=== PATIENT | female | born 1930 | race Caucasian/White ===

== ENCOUNTER 2016-11-19 10:06 | Emergency (ER) | payer MEDICARE, OTHER ==
[~2016-11-19] VITALS: Ht 170.2 cm; Wt 113.1 kg
[~2016-11-19 10:06] MED LIST: ASPI81 PO; CARV12.5 PO; CHOL1CAP6 PO; FEXO180 PO; FISH1000 PO; FURO20TA PO; IMDU30TA PO; LANTUS2P SC; POTASSIUM PO; PRAV40TA PO; TAB-TAB PO
[2016-11-19 10:11] VITALS: BP 189/79; PULSE 63; RESP 20; TEMP 97.8; O2SAT 98
--- NOTE | 2016-11-19 10:27 | PD ---
HPI Chief Complaint: Fall Time Seen by Provider: 10:22 Travel History International Travel<30 days: No Contact w/Intl Traveler<30days: No Traveled to known affect area: No History of Present Illness HPI Patient presents after a fall. States she got up from the table and started walking to her bedroom when her feet felt numb and she fell forward. Denies any loss of consciousness. She does wear glasses. Denies any neck pain. Reports left shoulder pain. Denies headache. Unable to recall last tetanus. PFSH Past Medical History Asthma: No Blood Disorders: No Heart Rhythm Problems: No Cancer: No Cardiovascular Problems: Yes (CHF) High Cholesterol: Yes Chemotherapy: No Chest Pain: No Congestive Heart Failure: No COPD: No Diabetes: Yes Diminished Hearing: No Endocrine: No Glaucoma: No Genitourinary: No Hepatitis: No Hiatal Hernia: No Hypertension: Yes Immune Disorder: No Musculoskeletal: No Neurologic: No Psychiatric: No Reproductive: No Respiratory: Yes Immunizations Current: Yes (FLU SHOT-2007; PNEUMONIA SHOT-2005) Myocardial Infarction: No Radiation Therapy: No Sleep Apnea: No Thyroid Disease: No ?: Not Past Surgical History Abdominal Surgery: No AICD: No Arteriovenous Shunt: No Cardiac Surgery: No Ear Surgery: No Endocrine Surgery: No Eye Surgery: Yes (RIGHT CATARACT SX ) Genitourinary Surgery: No Gynecologic Surgery: Yes ([facility] 1972) Hysterectomy: Yes (1971) Insulin Pump: No Joint Replacement: No Oral Surgery: No Pacemaker: No Thoracic Surgery: No Other Surgery: Yes (BREAST BX X 2) Social History Alcohol Use: No Tobacco Use: No Substance Use: No Allergies-Medications (Allergen,Severity, Reaction): Coded Allergies: codeine (Unverified Allergy, Severe, 11/19/16) DIZZY; NAUSEA AND VOMITING ; INTERMEDIATE REACTION Reported Meds & Prescriptions Reported Meds & Active Scripts Active Reported Fish Oil + D3 (Fish Oil-Cholecalciferol) 1,200-1,000 Mg-Unit Cap 1 Cap PO DAILY Vitamin D3 (Cholecalciferol) 1,000 Unit Cap 1,000 Units PO DAILY Lantus Solostar Pen Inj (Insulin Glargine) 300 Unit/3 Ml Pen 38 Units SQ HS Furosemide 20 Mg Tab 20 Mg PO DAILY Isosorbide Mononitrate ER (Isosorbide Mononitrate) 30 Mg Esau 30 Mg PO DAILY Pravastatin 40 Mg Tab 40 Mg PO DAILY Carvedilol 6.25 Mg Tab 6.25 Mg PO BID Aspirin 325 Mg Tab 325 Mg PO DAILY Review of Systems General / Constitutional: No: Fever Eyes: No: Visual changes HENT: No: Headaches Cardiovascular: No: Chest Pain or Discomfort Respiratory: No: Shortness of Breath Gastrointestinal: No: Abdominal Pain Genitourinary: No: Dysuria Musculoskeletal: No: Pain Skin: No Rash Neurologic: No: Weakness Psychiatric: No: Depression Endocrine: No: Polydipsia Hematologic/Lymphatic: No: Easy Bruising Physical Exam Narrative GENERAL: Well-nourished, well-developed patient. SKIN: Focused skin assessment warm/dry. HEAD: Normocephalic. EYES: No scleral icterus. No injection or drainage. NECK: Supple, trachea midline. No JVD or lymphadenopathy. CARDIOVASCULAR: Regular rate and rhythm without murmurs, gallops, or rubs. RESPIRATORY: Breath sounds equal bilaterally. No accessory muscle use. GASTROINTESTINAL: Abdomen soft, non-tender, nondistended. MUSCULOSKELETAL: No cyanosis, or edema. BACK: Nontender without obvious deformity. No CVA tenderness. Examination left shoulder reveals discomfort on range of motion without any bony deformities There is a small hematoma above the left eye with minimal laceration that is well approximated Data Data Last Documented VS Vital Signs Date Time Temp Pulse Resp B/P (MAP) Pulse Ox O2 Delivery O2 Flow Rate FiO2 11/19/16 10:11 97.8 63 20 189/79 (115) 98 Orders Orders Shoulder, Limited(2vws) (11/19/16 ) [id number] (Booster) Inj (Boostrix (11/19/16 10:30) Splint Or Brace Apply/Monitor (11/19/16 11:01) MDM Medical Decision Making Medical Screen Exam Complete: Yes Emergency Medical Condition: Yes Differential Diagnosis Left shoulder strain, left shoulder contusion, left shoulder dislocation, forehead laceration, forehead hematoma Narrative Course Assessment and plan discussed with patient and friend at bedside. Left shoulder films reveal a Humeral head fracture. Diagnosis Primary Impression: Fracture of humeral head, left, closed Qualified Codes: S42.292A - Other displaced fracture of upper end of left humerus, initial encounter for closed fracture Additional Impression: Traumatic hematoma of forehead Qualified Codes: S00.83XA - Contusion of other part of head, initial encounter Patient Instructions: General Instructions Additional Instructions: Motrin or Tylenol for pain, sling for comfort, orthopedic follow-up, ice to shoulder and forehead, follow-up with PCP, return to emergency room with any onset of new symptoms. Encouraged cane use. Med/Other Pt SpecificInfo: No Meds Exist/No RX given Disposition: 01 DISCHARGE HOME Condition: Good Carmine Monahan MD Nov 19, 2016 10:27
[2016-11-19] MEDS ORDERED: FISHCAP4 PO (10:28)
[2016-11-19] MEDS ORDERED: PRAV40TA2 PO (10:28)
[2016-11-19] MEDS ORDERED: LANTINJ SQ (10:28)
[2016-11-19] MEDS ORDERED: ASPI325T PO (10:28)
[2016-11-19] MEDS ORDERED: FURO20TA PO (10:28)
[2016-11-19] MEDS ORDERED: ISOS30TA3 PO (10:28)
[2016-11-19] MEDS ORDERED: CARV6.252 PO (10:28)
[2016-11-19] MEDS ORDERED: VITA100036 PO (10:28)
[2016-11-19] MEDS ORDERED: DIPHTH/TETANUS/ACEL PERTUSSIS (BOOSTER) 0.5 ML VIAL/PFS IM ONE (10:30)
--- NOTE | 2016-11-19 10:45 | RADRPT ---
EXAM DATE/TIME: 11/19/2016 10:30 [facility] COMPARISON: No previous studies available for comparison. INDICATIONS : Fell, left shoulder pain with limited ROM MEDICAL HISTORY : Diabetes mellitus type II. SURGICAL HISTORY : None. ENCOUNTER: Initial ACUITY: 1 day PAIN SCORE: 9/10 LOCATION: Left shoulder FINDINGS: The examination demonstrates a comminuted fracture involving the humeral head and humeral neck. The remainder the osseous structures are intact. A limited portion of lung apex visualized is clear. CONCLUSION: 1. Comminuted, impacted fracture involving the left humeral head and neck. Wilman Strauss MD on November 19, 2016 at 10:43 Board Certified Radiologist. This report was verified electronically.
[2016-11-27] MEDS ORDERED: MULT-65 PO (09:03)
[2016-11-27] MEDS ORDERED: POTA10CA PO (09:03)
== END 2016-11-19 11:23 | disposition home or self-care (01) ==
LOC: PHED 10:06
DX: S42.292A Other displaced fracture of upper end of left humerus, initial encounter for closed fracture (principal); S00.83XA Contusion of other part of head, initial encounter; R20.0 Anesthesia of skin; E11.9 Type 2 diabetes mellitus without complications; I10 Essential (primary) hypertension; E78.00 Pure hypercholesterolemia, unspecified; W18.39XA Other fall on same level, initial encounter; Y92.009 Unspecified place in unspecified non-institutional (private) residence as the place of occurrence of the external cause; Z23 Encounter for immunization; Z79.4 Long term (current) use of insulin; Z86.79 Personal history of other diseases of the circulatory system; Z87.09 Personal history of other diseases of the respiratory system
CPT/HCPCS: 73030; 90471; 90715

== ENCOUNTER → 2016-11-27 | Outpatient (CLI) | payer MEDICARE, OTHER ==
[~2016-11-27] MED LIST changes: +ASPI325T PO; -ASPI81 PO; -CARV12.5 PO; +CARV6.252 PO; -CHOL1CAP6 PO; -FEXO180 PO; -FISH1000 PO; +FISHCAP4 PO; -IMDU30TA PO; +ISOS30TA3 PO; +LANTINJ SQ; -LANTUS2P SC; +MULT-65 PO; +OXYC1TAB63 PO; +POTA10CA PO; -POTASSIUM PO; -PRAV40TA PO; +PRAV40TA2 PO; -TAB-TAB PO; +VITA100036 PO
[2016-11-27 11:03] LABS: APTT (PATIENT) 24.6 SEC (24.3-30.1); PROTHROMBIN TIME - PATIENT 11.1 SEC (9.8-11.6)
[2016-11-27 11:20] LABS: BLOOD, URINE NEG (NEG); COMMENT (UR) CATH-CULT NOT IND; CULTURE IF INDICATED CATH CULTURE NOT IND; GLUCOSE,URINE NEG (NEG); HYALINE CAST, URINE 4 /lpf (RARE); KETONE, URINE NEG (NEG); MUCUS URINE FEW /lpf (OCC); NITRITE,URINE NEG (NEG); PH, URINE 5.5 (5.0-8.5); SQUAMOUS EPITHELIAL CELL URINE <1 /hpf (0-5); URINE COLOR YELLOW (YELLW/STRAW)
--- NOTE | 2016-11-29 07:38 | EKG ---
Date Performed: 11/27/2016 Time Performed: 08:42:15 PTAGE: 86 years EKG: Sinus rhythm WITH FIRST DEGREE AV BLOCK MARKED LEFT AXIS DEVIATION RIGHT BUNDLE BRANCH BLOCK Compared to prior tr acing no significant change ABNORMAL ECG PREVIOUS TRACING : 09/28/2014 10.52 DOCTOR: Neno Gan Interpretating Date/Time 11/29/2016 07:38:17
== END ==
LOC: CPRE 08:01
PROVIDERS: ATTEND Orthopaedic Surgery
DX: Z01.810 Encounter for preprocedural cardiovascular examination (principal); Z01.812 Encounter for preprocedural laboratory examination; S42.232A 3-part fracture of surgical neck of left humerus, initial encounter for closed fracture; S42.252A Displaced fracture of greater tuberosity of left humerus, initial encounter for closed fracture; I10 Essential (primary) hypertension; M79.609 Pain in unspecified limb; R94.31 Abnormal electrocardiogram [ECG] [EKG]; X58.XXXA Exposure to other specified factors, initial encounter
CPT/HCPCS: 36415; 81001; 85610; 85730; 86850; 86900; 86901; 93005

== ENCOUNTER 2016-11-28 07:22 | Observation (INO) | payer MEDICARE, OTHER ==
[~2016-11-28] VITALS: Ht 167.6 cm; Wt 112.4 kg
[~2016-11-28 07:22] MED LIST changes: -OXYC1TAB63 PO
[2016-11-28] MEDS ORDERED: CHLORHEXIDINE GLUCONATE 4% SOLN 120 ML BTL TOPICAL SCH (08:00)
[2016-11-28] MEDS ORDERED: ceFAZolin 2 GM PREMIX 50 ML IV SCH (08:00)
[2016-11-28] MEDS ORDERED: METOPROLOL TARTRATE 25 MG TAB PO PRN (08:00)
[2016-11-28] MEDS ORDERED: SODIUM CHLORIDE 0.9% IV SCH ×3 (08:00→14:00)
[2016-11-28] MEDS ORDERED: LACTATED RINGER'S 1000 ML IV PRN (08:00)
[2016-11-28] MEDS ORDERED: EXPAREL PERI-ARTICULAR INJECTION (TOTAL VOL. 60 ML) P-ARTICULR SCH ×2 (08:00)
[2016-11-28] MEDS ORDERED: CHLORHEXIDINE GLUCONATE 2 % 1 PACK (2 CLOTHS) TOPICAL PRN (08:00)
[2016-11-28] MEDS ORDERED: SODIUM CHLORID 0.9% 500 ML IV PRN (08:00)
[2016-11-28] MEDS ORDERED: TRANEXAMIC ACID IV SCH ×3 (08:00→14:00)
[2016-11-28] MEDS ORDERED: POVIDONE IODINE 5% (ANTISEPSIS KIT) 4 APPLICATIONS EACH NARE PRN (08:00)
[2016-11-28] MEDS ORDERED: INSULIN HUMAN REGULAR 1,000 UNITS/10 ML VIAL SQ PRN (08:00)
[2016-11-28] MEDS ORDERED: GENTAMICIN SULFATE 80 MG/2 ML VIAL ONE (09:50)
[2016-11-28] MEDS ORDERED: ACETAMINOPHEN 1000 MG/100 ML 100 ML IV ONE (10:21)
[2016-11-28] MEDS ORDERED: FAMOTIDINE 20 MG/2 ML VIAL ONE (10:21)
[2016-11-28] MEDS ORDERED: ONDANSETRON HCL 4 MG/2 ML VIAL IVP PRN (11:00)
[2016-11-28] MEDS ORDERED: ZOLPIDEM TARTRATE 5 MG TAB PO PRN (11:00)
[2016-11-28] MEDS ORDERED: Post-op Orders (for Pharmacy) MISC XX ONE (11:00)
[2016-11-28] MEDS ORDERED: SODIUM CHLORIDE 0.9% FLUSH 5 ML FLUSH IVF PRN (11:00)
[2016-11-28] MEDS ORDERED: MORPHINE SULFATE 4 MG/ML INJ IV PUSH PRN (11:00)
[2016-11-28] MEDS ORDERED: MAGNESIUM HYDROXIDE SUSP 30 ML CUP PO PRN (11:00)
[2016-11-28] MEDS ORDERED: ePHEDrine/NS 25 MG/5 ML SYR IV ONE (12:00)
[2016-11-28] MEDS ORDERED: MIDAZOLAM HCL 2 MG/2 ML VIAL IV ONE (12:00)
[2016-11-28] MEDS ORDERED: ONDANSETRON HCL 4 MG/2 ML VIAL IV PUSH ONE (12:00)
[2016-11-28] MEDS ORDERED: ROCURONIUM INJ 50 MG/5 ML SYRINGE IV PUSH ONE (12:00)
[2016-11-28] MEDS ORDERED: GLYCOPYRROLATE 1 MG/5 ML SYRINGE IV PUSH ONE (12:00)
[2016-11-28] MEDS ORDERED: PROPOFOL 200 MG/20 ML AMP IV ONE (12:00)
[2016-11-28] MEDS ORDERED: NEOSTIGMINE 3 MG/3 ML SYR IV ONE (12:00)
[2016-11-28] MEDS ORDERED: LIDOCAINE HCL 1% PF 5 ML AMPULE OTHER ONE (12:00)
--- NOTE | 2016-11-28 13:08 | HHI.FF ---
Face to Face Verification Diagnosis: (1) Fracture of humerus, proximal, left, closed (2) Status post total replacement of left shoulder Occupational Therapy Left UE Range of Motion: Pendular Additional Instructions Do not externally rotate left shoulder beyond 0 degrees or do internal rotation against resistance until 6 weeks postop. Nursing Dressing Changes: Daily dressing change, Coverderm/Primapore Additional Instructions Remove steristrips on postop day 14. I have seen patient Yoly Harrington on 11/28/16. My clinical findings support the need for the requested home health care services because: Ltd mobility - disease progression Limited ability to care for self High risk of falls I certify that my clinical findings support that this patient is homebound because: Post-op weakness Unsteady gait/balance Unsafe to leave home unassisted Vanna Wyatt MD (Charles) Nov 28, 2016 13:08
[2016-11-28] MEDS ORDERED: DO NOT ADM ANY ANTICOAGULANT DRUGS PRN (13:12)
--- NOTE | 2016-11-28 13:16 | HHI.PR ---
Immediate Post Op Note Procedure Date: Nov 28, 2016 Pre Op Diagnosis: (1) Fracture of humerus, proximal, left, closed Post Op Diagnosis: (1) Fracture of humerus, proximal, left, closed Head splitting fracture. Surgeon: Jayden Wyatt MD Iuss Acoustic Analyst(s): ASHLEY Mabry Procedure: Hemiarthroplasty, left shoulder with Raimundo Reunion prosthesis. Complications: none Specimen(s) removed: none Estimated blood loss: 75 ml Anesthesia: General, Regional Block (interscalene), Local (Exparel) Drains: None IVF Patient to: PACU Patient Condition: Good Vanna Wyatt MD (Charles) Nov 28, 2016 13:16
--- NOTE | 2016-11-28 13:16 | HHI.PR ---
Immediate Post Op Note Procedure Date: Nov 28, 2016 Pre Op Diagnosis: (1) Fracture of humerus, proximal, left, closed Post Op Diagnosis: (1) Fracture of humerus, proximal, left, closed Head splitting fracture. Surgeon: Jayden Wyatt MD Imager(s): ASHLEY Mabry Procedure: Hemiarthroplasty, left shoulder with Raimundo Reunion prosthesis. Complications: none Specimen(s) removed: none Estimated blood loss: 75 ml Anesthesia: General, Regional Block (interscalene), Local (Exparel) Drains: None IVF Patient to: PACU Patient Condition: Good Vanna Wyatt MD (Charles) Nov 28, 2016 13:16
--- NOTE | 2016-11-28 13:16 | HHI.PR ---
Immediate Post Op Note Procedure Date: Nov 28, 2016 Pre Op Diagnosis: (1) Fracture of humerus, proximal, left, closed Post Op Diagnosis: (1) Fracture of humerus, proximal, left, closed Head splitting fracture. Surgeon: Jayden Wyatt MD Electric Blasting Cap Assembler(s): ASHLEY Mabry Procedure: Hemiarthroplasty, left shoulder with Raimundo Reunion prosthesis. Complications: none Specimen(s) removed: none Estimated blood loss: 75 ml Anesthesia: General, Regional Block (interscalene), Local (Exparel) Drains: None IVF Patient to: PACU Patient Condition: Good Vanna Wyatt MD (Charles) Nov 28, 2016 13:16
[2016-11-28] MEDS: LACTATED RINGER'S 1000 ML INJ 1,000 ML IV SCH (13:30)
--- NOTE | 2016-11-28 15:00 | RADRPT ---
EXAM DATE/TIME: 11/28/2016 13:49 [facility] COMPARISON: SHOULDER LEFT LTD (2VWS), November 19, 2016, 10:30. INDICATIONS : Post op left total shoulder. MEDICAL HISTORY : Diabetes mellitus type II. SURGICAL HISTORY : None. ENCOUNTER: Initial ACUITY: 1 day PAIN SCORE: 6/10 LOCATION: Left Shoulder FINDINGS: Patient is status post placement of a left shoulder prosthesis. There is good position and alignment of the prosthesis and bony structures. The bony structures are grossly intact. Postsurgical changes a re present. CONCLUSION: Good position and alignment on this postoperative examination. Sarabjit Valle MD on November 28, 2016 at 14:58 Board Certified Radiologist. This report was verified electronically.
--- NOTE | 2016-11-28 15:02 | MP ---
cc: Vanessa SHERMAN. DATE OF SURGERY: 11/28/2016 PREOPERATIVE DIAGNOSIS Head-splitting proximal humerus fracture, left shoulder. POSTOPERATIVE DIAGNOSIS Head-splitting proximal humerus fracture, left shoulder. OPERATION PERFORMED Left shoulder hemiarthroplasty with [place] ReUnion prosthesis. SURGEON Vanna Sherman MD ANESTHESIA General endotracheal with supplemental interscalene block and local. INDICATIONS AND FINDINGS This 86-year-old woman fell at home when getting up from a chair and injured her shoulder. She was seen at the emergency department where x-rays were taken. This showed a fracture of the proximal humerus that appeared to be displaced and intraarticular. A CT scan was obtained which showed a fracture of the proximal humerus well-healed had head-split component to it. Physical findings showed ecchymosis and tenderness in the shoulder. Her x-rays are as noted above. Operative findings were consistent with radiographic findings with there being a head-splitting proximal humerus fracture. The actual portions of the shaft did not appear to be significantly damaged. The head fragment was such that it could not be stabilized with internal fixation. IMPLANTS USED Raimundo ReUnion stem size 10 with a size 44 x 16 mm symmetrical head. PROCEDURE The patient was brought to the operating room and general endotracheal anesthetic as well as an interscalene block anesthetic were carried out by Dr. Gutierrez. The patient was then placed into a beach-chair position with a bolster under the left shoulder. She was then prepped with alcohol, Hibiclens and ChloraPrep and draped in the usual manner with the shoulder draped free. She received prophylactic antibiotics in the form of Ancef. She also received tranexamic acid. The left shoulder After an appropriate timeout procedure, local anesthesia was administered in the incision site. An anterior incision was then made going from the interval between the acromioclavicular joint and the coracoid down to the anterior aspect of the axillary fold. This incision was deepened through subcutaneous tissues down to the deltopectoral groove which was exposed and identified. This was then opened bluntly protecting the cephalic vein. Retractors were placed. Dissection was carried out down to the shoulder joint itself. The rotator cuff was intact. Palpating through this it was evident that there was a split in the humeral head. The rotator interval was identified and split. The fracture was then identified. There was significant joint incongruity. The subscapularis was then carefully detached from the lesser tuberosity which appeared to be intact. The retractors were placed about the humeral neck and head. After placement of a cutting guide the proximal humeral cut was made with the oscillating saw. The head fragments were removed. The area of the greater tuberosity and lesser tuberosity were carefully inspected. There did not appear to be any instability of the fracture. Proximal humeral preparation was initiated using hand awls followed by broaching. The hand awls went to size 10 mm and the broaching started at size 8 and went to 10. A size 11 would not go. The trial prosthesis with the head was then positioned in place and appeared satisfactory. There was excellent motion and excellent stability. The humeral trial was removed. The stem was partially of inserted and bone graft from the humeral head was impacted into the edges proximally. The humeral head fragment was then impacted tightly. The head prosthesis was then impacted onto the stem after it was cleaned and dried. This was very stable at this point. The shoulder was then irrigated well. Local anesthesia was administered throughout the shoulder with Exparel. Wound closure then commenced using #1 FiberWire interrupted Sd Elvis sutures to reattach the subscapularis and close the interval between the subscapularis and the supraspinatus. The deltopectoral groove was closed with interrupted 0 Vicryl [id number] sutures. The subcutaneous tissue was closed with 2-0 Vicryl interrupted simple sutures with buried knots. The skin was closed with continuous subcuticular closure of 4-0 Monocryl. The wound was dressed with Steri-Strips followed by dry dressing, ABD and Medipore compression dressing. The arm was placed back into a sling and swathe. The patient was transferred to the recovery room in satisfactory condition having tolerated the procedure well. Counts were correct. Specimens none. Estimated blood loss 75 mL. MD VICTOR M Das/DARWIN /1:19 PM /2:44 PM
--- NOTE | 2016-11-28 15:32 | PD.PN.STU ---
Subjective Remarks CC: Lt shoulder proximal humerus fracture HPI: Pt is a 86yo female with a h/o of DM, HTN, hypercholesterolemia, and urinary retention who underwent same day surgery for a head-splitting left proximal humerus fracture with Dr. Swanson. Pt reports experiencing a fall last Sunday (11/19) in the presence of her daughter while attempting to get up from a chair at her home, the daughter was no table to witness the fall as she had her back to her. Pt cannot recall if she was dizzy, tripped on something, or if she lost consciousness before the fall, but does not believe she lost consciousness. Pt denies h/o of strokes in the past. They went to the ER where X -ray imaging showed fracture of the proximal humerus that appeared to be displaced and intraarticular. A CT scan showed a head-splitting left proximal humerus fracture. The following Wed the pt saw Dr. Swanson in his office and planned for the surgery for today. Pt currently reports throat dryness and adequate pain control. Overall feeling good and comfortable. Denies HERR, changes in vision, SOB, abdominal pain, leg pain, leg swelling. Pt does not have a albarado catheter and has not asked to urinate at this time. PACU nurse reports good anesthesia recovery and denies aspiration during intubation. PMH: diabetes mellitus, hypertension, hypercholesterolemia, upper and lower dentures, urinary retention PSH: breast biopsyx2, bilateral cataract removal, hysterectomy (1971) FH: mother from multiple strokes at 86yo. no medical history on father who at 77yo. 6 brothers and sisters who are all , but pt reported no significant medical history. SH: denies tobacco and alcohol use Allergies: codeine- nausea and vomiting Objective Vitals Vital Signs Date Time Temp Pulse Resp B/P (MAP) Pulse Ox O2 Delivery O2 Flow Rate FiO2 11/28/16 14:30 52 15 118/58 (78) 93 Room Air 11/28/16 14:15 57 15 121/57 (78) 93 Room Air 11/28/16 14:00 58 18 127/59 (81) 94 Room Air 11/28/16 13:45 60 19 127/58 (81) 94 Room Air 11/28/16 13:30 65 14 126/60 (82) 94 Room Air 11/28/16 13:15 97.4 69 13 129/62 (84) 97 Room Air 11/28/16 08:04 97.9 57 18 142/57 (85) 96 I/O 11/27/16 11/27/16 11/27/16 11/28/16 11/28/16 11/28/16 07:00 15:00 23:00 07:00 15:00 23:00 Intake Total 600 ml Output Total 50 ml Balance 550 ml Intake IV Total 600 ml Output Estimated Blood Loss 50 ml Other Results 11/28/16 11/28/16 11/29/16 15:00 23:00 07:00 Intake Total 600 ml Output Total 50 ml Balance 550 ml Intake IV Total 600 ml Output Estimated Blood Loss 50 ml Imaging Last Impressions Shoulder X-Ray 11/28/16 0000 Signed Impressions: Service Date/Time: Monday, November 28, 2016 13:49 - CONCLUSION: Good position and alignment on this postoperative examination. Sarabjit Valle MD Objective Remarks GENERAL: very pleasant, slightly groggy, WDWN obese female who was in NAD SKIN: Warm and dry. HEAD: Atraumatic. Normocephalic. EYES: Pupils equal and round. EOMI. No scleral icterus. No injection or drainage. ENT: No nasal bleeding or discharge. Dry mucous membranes, oropharynx nonerythematous. NECK: Trachea midline. No JVD. CARDIOVASCULAR: Regular rate and rhythm. S1 and S2 heard, no murmurs, gallops, rubs. RESPIRATORY: No accessory muscle use. Clear to auscultation. Breath sounds equal bilaterally. GASTROINTESTINAL: Bowel sounds heard in all 4 quadrants. Abdomen soft, non- tender, nondistended. Hepatic and splenic margins not palpable. MUSCULOSKELETAL: Left shoulder and arm has bandage in place and in a sling. All other extremities without clubbing, cyanosis, or edema. No obvious deformities. NEUROLOGICAL: Awake, alert., and orientedx4 to self, time, place, and situation. No obvious cranial nerve deficits. Motor grossly within normal limits. Five out of 5 muscle strength in the arms and legs. Normal speech. PSYCHIATRIC: Appropriate mood and affect; insight and judgment normal. Procedures Hemiarthroplasty, left shoulder with [place] Reunion prosthesis with Dr. Swanson Medications and IVs Current Medications Medications (Trade) Dose Ordered Sig/Marcus Route Start Time Stop Time Status Last Admin Lactated Ringer's 1,000 ml @ 30 mls/hr Q24H PRN IV 11/28/16 08:00 12/01/16 07:59 Sodium Chloride 500 ml @ 30 mls/hr [id number] PRN IV 11/28/16 08:00 12/01/16 07:59 (Lopressor) 25 mg INVENTORY ASSISTANT PRN PO 11/28/16 08:00 12/01/16 07:59 (Betadine 5% Antisepsis Kit) 1 applic INVENTORY ASSISTANT PRN EACH NARE 11/28/16 08:00 12/01/16 07:59 (Chlorhexidine 2% Cloth) 3 pack INVENTORY ASSISTANT PRN TOPICAL 11/28/16 08:00 12/01/16 07:59 (NovoLIN R INJ) See Protocol Table ... INVENTORY ASSISTANT PRN SQ 11/28/16 08:00 12/01/16 07:59 (Hibiclens 4% Top Soln) 1 applic ONCE TOPICAL 11/28/16 08:00 12/01/16 07:59 Cefazolin Sodium/ Dextrose 50 ml @ 100 mls/hr INVENTORY ASSISTANT IV 11/28/16 08:00 12/01/16 07:59 11/28/16 11:14 Lactated Ringer's 1,000 ml @ 80 mls/hr [id number] IV 11/28/16 13:00 11/28/16 13:30 (NS Flush) 2 ml UNSCH PRN IVF 11/28/16 11:00 (NS Flush) 2 ml BID IVF 11/28/16 21:00 Cefazolin Sodium 1000 mg/Sodium Chloride 100 ml @ 200 mls/hr Q6H IV 11/28/16 18:00 11/29/16 06:29 (Morphine Inj) 4 mg Q3H PRN IV PUSH 11/28/16 11:00 (Percocet 5-325 Mg) 1 tab Q4H PRN PO 11/28/16 11:00 (Percocet 5-325 Mg) 2 tab Q4H PRN PO 11/28/16 11:00 Tranexamic Acid 1120 mg/Sodium Chloride 111.2 ml @ 200 mls/hr UNSCH IV 11/28/16 14:00 11/28/16 20:00 11/28/16 14:34 (Zofran Inj) 4 mg Q6H PRN IVP 11/28/16 11:00 (Colace) 100 mg BID PO 11/29/16 21:00 (Ambien) 5 mg HS PRN PO 11/28/16 11:00 (Milk Of Magnesia Liq) 30 ml DAILY PRN PO 11/28/16 11:00 (Aspirin) 325 mg DAILY PO 11/29/16 09:00 (Coreg) 6.25 mg BID PO 11/28/16 21:00 (Vitamin D3) 2,000 units DAILY PO 11/29/16 09:00 (Lasix) 20 mg DAILY PO 11/29/16 09:00 (Imdur) 30 mg DAILY PO 11/29/16 09:00 (KCl) 10 meq DAILY PO 11/29/16 09:00 (Pravachol) 40 mg DAILY PO 11/29/16 09:00 (Levemir Inj) 38 units HS SQ 11/28/16 21:00 (Theragran) 1 tab DAILY PO 11/29/16 09:00 Miscellaneous Information ALL NURSING DEPARTME... UNSCH PRN .XX 11/28/16 13:12 11/29/16 13:11 A/P Assessment and Plan Left proximal humerus fracture after a fall s/p Lt. shoulder hemiarthroplasty- managed by surgery, Dr. Swanson cont current pain management Insulin Dependent Diabetes Mellitus SSI with hypoglycemic protocol accuchecks heart healthy diet and diabetic diet Hypertension on carvedilol and furosomide cont home meds monitor BP Hypercholesterolemia on pravastatin currently cont home meds Obesity addicted diet and exercised heart healthy diet follow up with central office equipment engineer as outpatient consider bariatric surgery Discussed at length with Miss Li Tran MS III. Agree with above Li Tran M3 Nov 28, 2016 15:32 Meme Ayers MD Nov 28, 2016 16:47
--- NOTE | 2016-11-28 15:32 | PD.PN.STU ---
Subjective Remarks CC: Lt shoulder proximal humerus fracture HPI: Pt is a 86yo female with a h/o of DM, HTN, hypercholesterolemia, and urinary retention who underwent same day surgery for a head-splitting left proximal humerus fracture with Dr. Swanson. Pt reports experiencing a fall last Sunday (11/19) in the presence of her daughter while attempting to get up from a chair at her home, the daughter was no table to witness the fall as she had her back to her. Pt cannot recall if she was dizzy, tripped on something, or if she lost consciousness before the fall, but does not believe she lost consciousness. Pt denies h/o of strokes in the past. They went to the ER where X -ray imaging showed fracture of the proximal humerus that appeared to be displaced and intraarticular. A CT scan showed a head-splitting left proximal humerus fracture. The following Wed the pt saw Dr. Swanson in his office and planned for the surgery for today. Pt currently reports throat dryness and adequate pain control. Overall feeling good and comfortable. Denies HERR, changes in vision, SOB, abdominal pain, leg pain, leg swelling. Pt does not have a albarado catheter and has not asked to urinate at this time. PACU nurse reports good anesthesia recovery and denies aspiration during intubation. PMH: diabetes mellitus, hypertension, hypercholesterolemia, upper and lower dentures, urinary retention PSH: breast biopsyx2, bilateral cataract removal, hysterectomy (1971) FH: mother from multiple strokes at 86yo. no medical history on father who at 77yo. 6 brothers and sisters who are all , but pt reported no significant medical history. SH: denies tobacco and alcohol use Allergies: codeine- nausea and vomiting Objective Vitals Vital Signs Date Time Temp Pulse Resp B/P (MAP) Pulse Ox O2 Delivery O2 Flow Rate FiO2 11/28/16 14:30 52 15 118/58 (78) 93 Room Air 11/28/16 14:15 57 15 121/57 (78) 93 Room Air 11/28/16 14:00 58 18 127/59 (81) 94 Room Air 11/28/16 13:45 60 19 127/58 (81) 94 Room Air 11/28/16 13:30 65 14 126/60 (82) 94 Room Air 11/28/16 13:15 97.4 69 13 129/62 (84) 97 Room Air 11/28/16 08:04 97.9 57 18 142/57 (85) 96 I/O 11/27/16 11/27/16 11/27/16 11/28/16 11/28/16 11/28/16 07:00 15:00 23:00 07:00 15:00 23:00 Intake Total 600 ml Output Total 50 ml Balance 550 ml Intake IV Total 600 ml Output Estimated Blood Loss 50 ml Other Results 11/28/16 11/28/16 11/29/16 15:00 23:00 07:00 Intake Total 600 ml Output Total 50 ml Balance 550 ml Intake IV Total 600 ml Output Estimated Blood Loss 50 ml Imaging Last Impressions Shoulder X-Ray 11/28/16 0000 Signed Impressions: Service Date/Time: Monday, November 28, 2016 13:49 - CONCLUSION: Good position and alignment on this postoperative examination. Sarabjit Valle MD Objective Remarks GENERAL: very pleasant, slightly groggy, WDWN obese female who was in NAD SKIN: Warm and dry. HEAD: Atraumatic. Normocephalic. EYES: Pupils equal and round. EOMI. No scleral icterus. No injection or drainage. ENT: No nasal bleeding or discharge. Dry mucous membranes, oropharynx nonerythematous. NECK: Trachea midline. No JVD. CARDIOVASCULAR: Regular rate and rhythm. S1 and S2 heard, no murmurs, gallops, rubs. RESPIRATORY: No accessory muscle use. Clear to auscultation. Breath sounds equal bilaterally. GASTROINTESTINAL: Bowel sounds heard in all 4 quadrants. Abdomen soft, non- tender, nondistended. Hepatic and splenic margins not palpable. MUSCULOSKELETAL: Left shoulder and arm has bandage in place and in a sling. All other extremities without clubbing, cyanosis, or edema. No obvious deformities. NEUROLOGICAL: Awake, alert., and orientedx4 to self, time, place, and situation. No obvious cranial nerve deficits. Motor grossly within normal limits. Five out of 5 muscle strength in the arms and legs. Normal speech. PSYCHIATRIC: Appropriate mood and affect; insight and judgment normal. Procedures Hemiarthroplasty, left shoulder with [place] prosthesis with Dr. Swanson Medications and IVs Current Medications Medications (Trade) Dose Ordered Sig/Marcus Route Start Time Stop Time Status Last Admin Lactated Ringer's 1,000 ml @ 30 mls/hr Q24H PRN IV 11/28/16 08:00 12/01/16 07:59 Sodium Chloride 500 ml @ 30 mls/hr [id number] PRN IV 11/28/16 08:00 12/01/16 07:59 (Lopressor) 25 mg DISABILITY PROGRAM NAVIGATOR PRN PO 11/28/16 08:00 12/01/16 07:59 (Betadine 5% Antisepsis Kit) 1 applic DISABILITY PROGRAM NAVIGATOR PRN EACH NARE 11/28/16 08:00 12/01/16 07:59 (Chlorhexidine 2% Cloth) 3 pack DISABILITY PROGRAM NAVIGATOR PRN TOPICAL 11/28/16 08:00 12/01/16 07:59 (NovoLIN R INJ) See Protocol Table ... DISABILITY PROGRAM NAVIGATOR PRN SQ 11/28/16 08:00 12/01/16 07:59 (Hibiclens 4% Top Soln) 1 applic ONCE TOPICAL 11/28/16 08:00 12/01/16 07:59 Cefazolin Sodium/ Dextrose 50 ml @ 100 mls/hr DISABILITY PROGRAM NAVIGATOR IV 11/28/16 08:00 12/01/16 07:59 11/28/16 11:14 Lactated Ringer's 1,000 ml @ 80 mls/hr [id number] IV 11/28/16 13:00 11/28/16 13:30 (NS Flush) 2 ml UNSCH PRN IVF 11/28/16 11:00 (NS Flush) 2 ml BID IVF 11/28/16 21:00 Cefazolin Sodium 1000 mg/Sodium Chloride 100 ml @ 200 mls/hr Q6H IV 11/28/16 18:00 11/29/16 06:29 (Morphine Inj) 4 mg Q3H PRN IV PUSH 11/28/16 11:00 (Percocet 5-325 Mg) 1 tab Q4H PRN PO 11/28/16 11:00 (Percocet 5-325 Mg) 2 tab Q4H PRN PO 11/28/16 11:00 Tranexamic Acid 1120 mg/Sodium Chloride 111.2 ml @ 200 mls/hr UNSCH IV 11/28/16 14:00 11/28/16 20:00 11/28/16 14:34 (Zofran Inj) 4 mg Q6H PRN IVP 11/28/16 11:00 (Colace) 100 mg BID PO 11/29/16 21:00 (Ambien) 5 mg HS PRN PO 11/28/16 11:00 (Milk Of Magnesia Liq) 30 ml DAILY PRN PO 11/28/16 11:00 (Aspirin) 325 mg DAILY PO 11/29/16 09:00 (Coreg) 6.25 mg BID PO 11/28/16 21:00 (Vitamin D3) 2,000 units DAILY PO 11/29/16 09:00 (Lasix) 20 mg DAILY PO 11/29/16 09:00 (Imdur) 30 mg DAILY PO 11/29/16 09:00 (KCl) 10 meq DAILY PO 11/29/16 09:00 (Pravachol) 40 mg DAILY PO 11/29/16 09:00 (Levemir Inj) 38 units HS SQ 11/28/16 21:00 (Theragran) 1 tab DAILY PO 11/29/16 09:00 Miscellaneous Information ALL NURSING DEPARTME... UNSCH PRN .XX 11/28/16 13:12 11/29/16 13:11 A/P Assessment and Plan Left proximal humerus fracture after a fall s/p Lt. shoulder hemiarthroplasty- managed by surgery, Dr. Swanson cont current pain management Insulin Dependent Diabetes Mellitus SSI with hypoglycemic protocol accuchecks heart healthy diet and diabetic diet Hypertension on carvedilol and furosomide cont home meds monitor BP Hypercholesterolemia on pravastatin currently cont home meds Obesity addicted diet and exercised heart healthy diet follow up with furnace mechanic helper as outpatient consider bariatric surgery Discussed at length with Miss Li Tran MS III. Agree with above Li Tran M3 Nov 28, 2016 15:32 Meme Ayers MD Nov 28, 2016 16:47
--- NOTE | 2016-11-28 15:32 | PD.PN.STU ---
Subjective Remarks CC: Lt shoulder proximal humerus fracture HPI: Pt is a 86yo female with a h/o of DM, HTN, hypercholesterolemia, and urinary retention who underwent same day surgery for a head-splitting left proximal humerus fracture with Dr. Swanson. Pt reports experiencing a fall last Sunday (11/19) in the presence of her daughter while attempting to get up from a chair at her home, the daughter was no table to witness the fall as she had her back to her. Pt cannot recall if she was dizzy, tripped on something, or if she lost consciousness before the fall, but does not believe she lost consciousness. Pt denies h/o of strokes in the past. They went to the ER where X -ray imaging showed fracture of the proximal humerus that appeared to be displaced and intraarticular. A CT scan showed a head-splitting left proximal humerus fracture. The following Wed the pt saw Dr. Swanson in his office and planned for the surgery for today. Pt currently reports throat dryness and adequate pain control. Overall feeling good and comfortable. Denies HERR, changes in vision, SOB, abdominal pain, leg pain, leg swelling. Pt does not have a albarado catheter and has not asked to urinate at this time. PACU nurse reports good anesthesia recovery and denies aspiration during intubation. PMH: diabetes mellitus, hypertension, hypercholesterolemia, upper and lower dentures, urinary retention PSH: breast biopsyx2, bilateral cataract removal, hysterectomy (1971) FH: mother from multiple strokes at 86yo. no medical history on father who at 77yo. 6 brothers and sisters who are all , but pt reported no significant medical history. SH: denies tobacco and alcohol use Allergies: codeine- nausea and vomiting Objective Vitals Vital Signs Date Time Temp Pulse Resp B/P (MAP) Pulse Ox O2 Delivery O2 Flow Rate FiO2 11/28/16 14:30 52 15 118/58 (78) 93 Room Air 11/28/16 14:15 57 15 121/57 (78) 93 Room Air 11/28/16 14:00 58 18 127/59 (81) 94 Room Air 11/28/16 13:45 60 19 127/58 (81) 94 Room Air 11/28/16 13:30 65 14 126/60 (82) 94 Room Air 11/28/16 13:15 97.4 69 13 129/62 (84) 97 Room Air 11/28/16 08:04 97.9 57 18 142/57 (85) 96 I/O 11/27/16 11/27/16 11/27/16 11/28/16 11/28/16 11/28/16 07:00 15:00 23:00 07:00 15:00 23:00 Intake Total 600 ml Output Total 50 ml Balance 550 ml Intake IV Total 600 ml Output Estimated Blood Loss 50 ml Other Results 11/28/16 11/28/16 11/29/16 15:00 23:00 07:00 Intake Total 600 ml Output Total 50 ml Balance 550 ml Intake IV Total 600 ml Output Estimated Blood Loss 50 ml Imaging Last Impressions Shoulder X-Ray 11/28/16 0000 Signed Impressions: Service Date/Time: Monday, November 28, 2016 13:49 - CONCLUSION: Good position and alignment on this postoperative examination. Sarabjit Valle MD Objective Remarks GENERAL: very pleasant, slightly groggy, WDWN obese female who was in NAD SKIN: Warm and dry. HEAD: Atraumatic. Normocephalic. EYES: Pupils equal and round. EOMI. No scleral icterus. No injection or drainage. ENT: No nasal bleeding or discharge. Dry mucous membranes, oropharynx nonerythematous. NECK: Trachea midline. No JVD. CARDIOVASCULAR: Regular rate and rhythm. S1 and S2 heard, no murmurs, gallops, rubs. RESPIRATORY: No accessory muscle use. Clear to auscultation. Breath sounds equal bilaterally. GASTROINTESTINAL: Bowel sounds heard in all 4 quadrants. Abdomen soft, non- tender, nondistended. Hepatic and splenic margins not palpable. MUSCULOSKELETAL: Left shoulder and arm has bandage in place and in a sling. All other extremities without clubbing, cyanosis, or edema. No obvious deformities. NEUROLOGICAL: Awake, alert., and orientedx4 to self, time, place, and situation. No obvious cranial nerve deficits. Motor grossly within normal limits. Five out of 5 muscle strength in the arms and legs. Normal speech. PSYCHIATRIC: Appropriate mood and affect; insight and judgment normal. Procedures Hemiarthroplasty, left shoulder with [place] prosthesis with Dr. Swanson Medications and IVs Current Medications Medications (Trade) Dose Ordered Sig/Marcus Route Start Time Stop Time Status Last Admin Lactated Ringer's 1,000 ml @ 30 mls/hr Q24H PRN IV 11/28/16 08:00 12/01/16 07:59 Sodium Chloride 500 ml @ 30 mls/hr [id number] PRN IV 11/28/16 08:00 12/01/16 07:59 (Lopressor) 25 mg RIVERBOAT CAPTAIN PRN PO 11/28/16 08:00 12/01/16 07:59 (Betadine 5% Antisepsis Kit) 1 applic RIVERBOAT CAPTAIN PRN EACH NARE 11/28/16 08:00 12/01/16 07:59 (Chlorhexidine 2% Cloth) 3 pack RIVERBOAT CAPTAIN PRN TOPICAL 11/28/16 08:00 12/01/16 07:59 (NovoLIN R INJ) See Protocol Table ... RIVERBOAT CAPTAIN PRN SQ 11/28/16 08:00 12/01/16 07:59 (Hibiclens 4% Top Soln) 1 applic ONCE TOPICAL 11/28/16 08:00 12/01/16 07:59 Cefazolin Sodium/ Dextrose 50 ml @ 100 mls/hr RIVERBOAT CAPTAIN IV 11/28/16 08:00 12/01/16 07:59 11/28/16 11:14 Lactated Ringer's 1,000 ml @ 80 mls/hr [id number] IV 11/28/16 13:00 11/28/16 13:30 (NS Flush) 2 ml UNSCH PRN IVF 11/28/16 11:00 (NS Flush) 2 ml BID IVF 11/28/16 21:00 Cefazolin Sodium 1000 mg/Sodium Chloride 100 ml @ 200 mls/hr Q6H IV 11/28/16 18:00 11/29/16 06:29 (Morphine Inj) 4 mg Q3H PRN IV PUSH 11/28/16 11:00 (Percocet 5-325 Mg) 1 tab Q4H PRN PO 11/28/16 11:00 (Percocet 5-325 Mg) 2 tab Q4H PRN PO 11/28/16 11:00 Tranexamic Acid 1120 mg/Sodium Chloride 111.2 ml @ 200 mls/hr UNSCH IV 11/28/16 14:00 11/28/16 20:00 11/28/16 14:34 (Zofran Inj) 4 mg Q6H PRN IVP 11/28/16 11:00 (Colace) 100 mg BID PO 11/29/16 21:00 (Ambien) 5 mg HS PRN PO 11/28/16 11:00 (Milk Of Magnesia Liq) 30 ml DAILY PRN PO 11/28/16 11:00 (Aspirin) 325 mg DAILY PO 11/29/16 09:00 (Coreg) 6.25 mg BID PO 11/28/16 21:00 (Vitamin D3) 2,000 units DAILY PO 11/29/16 09:00 (Lasix) 20 mg DAILY PO 11/29/16 09:00 (Imdur) 30 mg DAILY PO 11/29/16 09:00 (KCl) 10 meq DAILY PO 11/29/16 09:00 (Pravachol) 40 mg DAILY PO 11/29/16 09:00 (Levemir Inj) 38 units HS SQ 11/28/16 21:00 (Theragran) 1 tab DAILY PO 11/29/16 09:00 Miscellaneous Information ALL NURSING DEPARTME... UNSCH PRN .XX 11/28/16 13:12 11/29/16 13:11 A/P Assessment and Plan Left proximal humerus fracture after a fall s/p Lt. shoulder hemiarthroplasty- managed by surgery, Dr. Swanson cont current pain management Insulin Dependent Diabetes Mellitus SSI with hypoglycemic protocol accuchecks heart healthy diet and diabetic diet Hypertension on carvedilol and furosomide cont home meds monitor BP Hypercholesterolemia on pravastatin currently cont home meds Obesity addicted diet and exercised heart healthy diet follow up with mixing picker tender as outpatient consider bariatric surgery Discussed at length with Miss Li Tran MS III. Agree with above Li Tran M3 Nov 28, 2016 15:32 Meme Ayers MD Nov 28, 2016 16:47
[2016-11-28 16:00] VITALS: BP 123/57; PULSE 58; RESP 18; TEMP 95.5; O2SAT 95
[2016-11-28] MEDS ORDERED: DEXTROSE 50% IN WATER 50 ML VIAL(D50) IV PUSH PRN (16:00)
[2016-11-28] MEDS ORDERED: GLUCAGON 1 MG/ML VIAL OTHER PRN (16:00)
--- NOTE | 2016-11-28 16:46 | PD.CONS ---
HPI Service [facility] Hospitalists Consult Requested By Dr Swanson Reason for Consult medical management Primary Care Physician Buddy Holloway MD Diagnoses: History of Present Illness Pt is a 86yo female with a h/o of DM, HTN, hypercholesterolemia, and urinary retention who underwent same day surgery for a head-splitting left proximal humerus fracture with Dr. Swanson. Pt reports experiencing a fall last Sunday (11/19) in the presence of her daughter while attempting to get up from a chair at her home, the daughter was no table to witness the fall as she had her back to her. Pt cannot recall if she was dizzy, tripped on something, or if she lost consciousness before the fall, but does not believe she lost consciousness. Pt denies h/o of strokes in the past. They went to the ER where X -ray imaging showed fracture of the proximal humerus that appeared to be displaced and intraarticular. A CT scan showed a head-splitting left proximal humerus fracture. The following Wed the pt saw Dr. Swanson in his office and planned for the surgery for today. Pt currently reports throat dryness and adequate pain control. Overall feeling good and comfortable. Denies HERR, changes in vision, SOB, abdominal pain, leg pain, leg swelling. Pt does not have a albarado catheter and has not asked to urinate at this time. PACU nurse reports good anesthesia recovery and denies aspiration during intubation. Review of Systems Except as stated in HPI: all other systems reviewed are Neg Past Family Social History Allergies: Coded Allergies: codeine (Unverified Allergy, Severe, 11/27/16) DIZZY; NAUSEA AND VOMITING ; INTERMEDIATE REACTION Past Medical History diabetes mellitus, hypertension, hypercholesterolemia, upper and lower dentures , urinary retention Past Surgical History breast biopsyx2, bilateral cataract removal, hysterectomy (1971) Reported Medications Reported Meds & Active Scripts Active Reported Potassium Chloride ER (Potassium Chloride) 10 Meq Cap 10 Meq PO DAILY Multi-Vitamin Daily (Multiple Vitamin) 1 Tab Tab 1 Tab PO DAILY Fish Oil + D3 (Fish Oil-Cholecalciferol) 1,200-1,000 Mg-Unit Cap 1 Cap PO DAILY Vitamin D3 (Cholecalciferol) 1,000 Unit Cap 1,000 Units PO DAILY Lantus Solostar Pen Inj (Insulin Glargine) 300 Unit/3 Ml Pen 38 Units SQ HS Furosemide 20 Mg Tab 20 Mg PO DAILY Isosorbide Mononitrate ER (Isosorbide Mononitrate) 30 Mg Esau 30 Mg PO DAILY Pravastatin 40 Mg Tab 40 Mg PO DAILY Carvedilol 6.25 Mg Tab 6.25 Mg PO BID Aspirin 325 Mg Tab 325 Mg PO DAILY Family History mother from multiple strokes at 86yo. no medical history on father who at 77yo. 6 brothers and sisters who are all , but pt reported no significant medical history. Social History denies tobacco and alcohol use Physical Exam Vital Signs Vital Signs Date Time Temp Pulse Resp B/P (MAP) Pulse Ox O2 Delivery O2 Flow Rate FiO2 11/28/16 16:00 95.5 58 18 123/57 (79) 95 11/28/16 15:30 57 22 141/65 (90) 92 Room Air 11/28/16 15:00 52 19 135/61 (85) 93 Room Air 11/28/16 14:30 52 15 118/58 (78) 93 Room Air 11/28/16 14:15 57 15 121/57 (78) 93 Room Air 11/28/16 14:00 58 18 127/59 (81) 94 Room Air 11/28/16 13:45 60 19 127/58 (81) 94 Room Air 11/28/16 13:30 65 14 126/60 (82) 94 Room Air 11/28/16 13:15 97.4 69 13 129/62 (84) 97 Room Air 11/28/16 08:04 97.9 57 18 142/57 (85) 96 Physical Exam GENERAL: very pleasant, slightly groggy, WDWN obese female who was in NAD SKIN: Warm and dry. HEAD: Atraumatic. Normocephalic. EYES: Pupils equal and round. EOMI. No scleral icterus. No injection or drainage. ENT: No nasal bleeding or discharge. Dry mucous membranes, oropharynx nonerythematous. NECK: Trachea midline. No JVD. CARDIOVASCULAR: Regular rate and rhythm. S1 and S2 heard, no murmurs, gallops, rubs. RESPIRATORY: No accessory muscle use. Clear to auscultation. Breath sounds equal bilaterally. GASTROINTESTINAL: Bowel sounds heard in all 4 quadrants. Abdomen soft, non- tender, nondistended. Hepatic and splenic margins not palpable. MUSCULOSKELETAL: Left shoulder and arm has bandage in place and in a sling. All other extremities without clubbing, cyanosis, or edema. No obvious deformities. NEUROLOGICAL: Awake, alert., and orientedx4 to self, time, place, and situation. No obvious cranial nerve deficits. Motor grossly within normal limits. Five out of 5 muscle strength in the arms and legs. Normal speech. PSYCHIATRIC: Appropriate mood and affect; insight and judgment normal. Assessment and Plan Assessment and Plan Left proximal humerus fracture after a fall s/p Lt. shoulder hemiarthroplasty- by Dr Swanson on 11/28/16 managed by surgery, Dr. Swanson cont current pain management Insulin Dependent Diabetes Mellitus SSI with hypoglycemic protocol accuchecks heart healthy diet and diabetic diet Hypertension on carvedilol and furosomide cont home meds monitor BP Hypercholesterolemia on pravastatin currently cont home meds Obesity addicted diet and exercised heart healthy diet follow up with diet consultant as outpatient consider bariatric surgery Discussed Condition With patient, nurse Meme Ayers MD Nov 28, 2016 16:46
[2016-11-28] MEDS: INSULIN ASPART SUPPLEMENTAL SCALE SQ SCH ×2 (17:00→21:29)
[2016-11-28 20:00] VITALS: BP 140/61; PULSE 61; RESP 17; TEMP 96.7; O2SAT 95
[2016-11-28] MEDS: CARVEDILOL 6.25 MG TAB PO SCH (20:02)
[2016-11-28] MEDS: oxyCODONE/ACETAMINOPHEN 5 MG/325 MG TAB PO PRN ×2 (20:02→23:27)
[2016-11-28] MEDS ORDERED: SODIUM CHLORIDE 0.9% FLUSH 5 ML FLUSH IVF SCH (21:00)
[2016-11-28] MEDS ORDERED: INSULIN DETEMIR 100 UNITS/ML VIAL SQ SCH (21:00)
[2016-11-29 00:08] VITALS: O2SAT 93
[2016-11-29 00:10] VITALS: BP 145/66; PULSE 65; RESP 17; TEMP 98.3; O2SAT 93
[2016-11-29] MEDS: LACTATED RINGER'S 1000 ML INJ 1,000 ML IV SCH (01:30)
[2016-11-29 04:05] VITALS: BP 138/64; PULSE 64; RESP 18; TEMP 98.6; O2SAT 94
[2016-11-29] MEDS: oxyCODONE/ACETAMINOPHEN 5 MG/325 MG TAB PO PRN ×2 (04:13→11:22)
--- NOTE | 2016-11-29 07:48 | PD.ORT.PN ---
Subjective Post Op Day #: 1 Subjective Remarks She is doing well. There is not much pain. Distance Walked 20 feet with therapy. Objective Vitals Vital Signs Date Time Temp Pulse Resp B/P (MAP) Pulse Ox O2 Delivery O2 Flow Rate FiO2 11/29/16 04:05 98.6 64 18 138/64 (88) 94 11/29/16 00:10 98.3 65 17 145/66 (92) 93 11/29/16 00:08 93 11/28/16 20:00 96.7 61 17 140/61 (87) 95 11/28/16 16:00 95.5 58 18 123/57 (79) 95 11/28/16 15:30 57 22 141/65 (90) 92 Room Air 11/28/16 15:00 52 19 135/61 (85) 93 Room Air 11/28/16 14:30 52 15 118/58 (78) 93 Room Air 11/28/16 14:15 57 15 121/57 (78) 93 Room Air 11/28/16 14:00 58 18 127/59 (81) 94 Room Air 11/28/16 13:45 60 19 127/58 (81) 94 Room Air 11/28/16 13:30 65 14 126/60 (82) 94 Room Air 11/28/16 13:15 97.4 69 13 129/62 (84) 97 Room Air 11/28/16 08:04 97.9 57 18 142/57 (85) 96 I/O 11/28/16 11/28/16 11/28/16 11/29/16 11/29/16 11/29/16 06:59 14:59 22:59 06:59 14:59 22:59 Intake Total 600 ml 360 ml 240 ml Output Total 50 ml Balance 550 ml 360 ml 240 ml Intake Oral 360 ml 240 ml IV Total 600 ml Output Estimated Blood Loss 50 ml # Voids 1 2 # Bowel Movements 0 0 Imaging Last 72 hours Impressions Shoulder X-Ray 11/28/16 0000 Signed Impressions: Service Date/Time: Monday, November 28, 2016 13:49 - CONCLUSION: Good position and alignment on this postoperative examination. Sarabjit Valle MD Objective Remarks She is OOB in the chair. The neurovascular status is intact. The dressing is dry and intact. Assessment & Plan Ortho Post Op Day #: 1 Problem List: (1) Status post total replacement of left shoulder ICD Codes: Z96.612 - Presence of left artificial shoulder joint (2) Fracture of humerus, proximal, left, closed ICD Codes: S42.202A - Unspecified fracture of upper end of left humerus, initial encounter for closed fracture Assessment and Plan Condition: Good. Orthopaedically stable. Discussed surgery, findings, precautions and activities allowed especially within the healing time of 6-8 weeks. Discharge plans: Home with [facility]. Has appointment. Rx Vanna Grier MD ([place]) Nov 29, 2016 07:48
[2016-11-29 08:00] VITALS: BP 137/50; PULSE 63; RESP 19; TEMP 97; O2SAT 96
[2016-11-29] MEDS: INSULIN ASPART SUPPLEMENTAL SCALE SQ SCH (08:00)
[2016-11-29] MEDS ORDERED: OXYC1TAB63 PO (08:15)
[2016-11-29 08:21] LABS: HEMATOCRIT 33.5 % (35.0-46.0); HEMOGLOBIN 11.2 GM/DL (11.6-15.3)
[2016-11-29] MEDS ORDERED: MULTIVITAMIN TAB PO SCH (09:00)
[2016-11-29] MEDS ORDERED: PRAVASTATIN SOD 40 MG TAB PO SCH (09:00)
[2016-11-29] MEDS ORDERED: FUROSEMIDE 20 MG TAB PO SCH (09:00)
[2016-11-29] MEDS ORDERED: ISOSORBIDE MONONITRATE 30 MG TAB PO SCH (09:00)
[2016-11-29] MEDS ORDERED: POTASSIUM CHLORIDE 10 MEQ CAP PO SCH (09:00)
[2016-11-29] MEDS ORDERED: ASPIRIN 325 MG TAB PO SCH (09:00)
[2016-11-29] MEDS ORDERED: NON-FORMULARY DRUG (Fish Oil-Cholecalciferol (Fish Oil + D3) 1 CAP) PO SCH (09:00)
[2016-11-29] MEDS ORDERED: CHOLECALCIFEROL (VIT D3) 1000 UNIT TAB PO SCH (09:00)
[2016-11-29] MEDS: CARVEDILOL 6.25 MG TAB PO SCH (09:09)
[2016-11-29 12:00] VITALS: BP 108/52; PULSE 69; RESP 18; TEMP 97.3; O2SAT 97
[2016-11-29] MEDS ORDERED: DOCUSATE SODIUM 100 MG CAP PO SCH (21:00)
== END 2016-11-29 12:40 | disposition home health service (06) ==
LOC: HSDC 07:22 → EDSTATUS 10:00 → INTOOBSV 10:56 → HSDI 10:56 → N06B 16:08
PROVIDERS: ADMIT Orthopaedic Surgery; ATTEND Orthopaedic Surgery
DX: S42.292A Other displaced fracture of upper end of left humerus, initial encounter for closed fracture (principal); M79.602 Pain in left arm; I10 Essential (primary) hypertension; E78.00 Pure hypercholesterolemia, unspecified; E11.9 Type 2 diabetes mellitus without complications; R33.9 Retention of urine, unspecified
CPT/HCPCS: 01630; 23470; 73030; 82948; 85014; 85018; 96365; 96366; 96372; 96375; 97110; 97116; 97163; C1776; C9290; G0378; G8987; G8988; J0131; J0690; J1580; J2250; J2405; J2710; J3010; J7120